=== PATIENT | male | born 1995 | race African-American/Black ===

== ENCOUNTER 2023-01-12 15:51 | Emergency (ER) | payer OTHER, SELFPAY ==
--- NOTE | ~2023-01-12 | XR_ITS ---
EXAMINATION: XR FOOT, LEFT CLINICAL INFORMATION: Foreign body heel plantar aspect COMPARISON: None available. TECHNIQUE: AP, lateral, and oblique views of the left foot. FINDINGS: No acute visible fracture or dislocation. Joint spaces and alignment are maintained. No radiopaque foreign body visualized XR/XR foot LT min 3V IMPRESSION: 1. No acute visible fracture or dislocation. 2. No radiopaque foreign body visualized.
[2023-01-12 16:33] VITALS: BP 121/69; PULSE 71; RESP 16; TEMP 36.7; O2SAT 94; BMI 32.7
--- NOTE | 2023-01-12 16:33 | ED_ITS ---
HPI - General Adult General Chief complaint: Wound/Laceration Stated complaint: Left foot Injury Two inch puncture wound Time Seen by Provider: 01/12/23 18:56 Source: patient Mode of arrival: ambulatory Limitations: no limitations History of Present Illness HPI narrative: Patient is a 27-year-old male who presents emergency department for evaluation of a puncture wound to the left heel. He reports that this happened prior to his arrival today. He was in his backyard he is unsure what he stepped on. He does not know the date of his last tetanus vaccine. He has not taken any OTC pain medication. He is having increasing pain to the left foot most notably with weight-bearing. Related Data Previous Rx's Medication Instructions Recorded cephalexin 500 mg capsule 500 mg PO QID 7 days #27 caps 01/12/23 Allergies Allergy/AdvReac Type Severity Reaction Status Date / Time brazil nuts Allergy Severe Anaphylaxis Uncoded 01/12/23 16:36 Review of Systems Review of Systems: Yes all other systems are reviewed and are negative [facility] Past Medical History Attestation statement: The following information was validated with the patient. Source: old records reviewed Social History Social History Advance Directives: No Advance Directives Information Provided: No Physical Exam ED Vital Signs: Vital Signs - 24 hr 01/12/23 16:33 Temperature 98.1 F Pulse Rate 71 Respiratory Rate 16 Blood Pressure 121/69 Pulse Oximetry 94 Oxygen Delivery Method Room Air BMI result Body Mass Index 32.7 Appearance: Alert.?Oriented to person, place and time. No acute distress.?Normal affect. Neck: Normal inspection.? Neck supple.?? CVS: Heart sounds normal. Normal heart rate and rhythm.? Pulses normal.?? Respiratory: No respiratory distress.? Lung sounds clear to auscultation bilaterally?? Abdomen: Soft and non-tender. ?? Skin: Skin warm and dry.? Normal skin color.? Puncture wound to left heel, bleeding controlled, no surrounding erythema or warmth?? Extremities: No lower extremity edema.? No calf ttp? Neuro: Moves all extremities spontaneously. Sensation intact bilaterally. Ambulates with antalgic gait. Course Course Course Narrative: This is a rapid medical exam: Additional HPI, ROS, PE not included below will be deferred to primary provider. Patient is a 27-year-old male presenting to the emergency department with complaint of puncture wound to plantar aspect of left heel. States he was in his backyard, is unsure what he stepped on. Does not believe he has any retained foreign body in his foot. Unsure last tetanus. Plan: Tdap, x-ray Medications Administered Discontinued Medications Generic Name Dose Route Start Last Admin Trade Name Ector PRN Reason Stop Dose Admin Cephalexin HCl 500 mg 01/12/23 19:28 01/12/23 19:36 Cephalexin 500 Mg Capsule PO 01/12/23 19:29 500 mg ONCE ONE Administration Diphtheria/Tetanus/Acell Pertussis 0.5 ml 01/12/23 16:36 01/12/23 17:52 Diphth,Pertus(Acell),Tet Adult 0.5 Ml Syringe IM 01/12/23 16:37 0.5 ml .ONCE ONE Administration Medical Decision Making Medical Decision Making MDM Narrative: Patient is a 27-year-old male who presents emergency department for evaluation of a puncture wound to the left heel. He is overall well-appearing, currently there is no evidence of infection to the wound and bleeding is controlled. The extremity is neurovascularly intact distally. He does have pain and difficulty with weight-bearing, provided with crutches to alleviate a weight-bearing burden advised that he may weight bear as tolerated. His tetanus vaccine was updated today. Educated on use of acetaminophen/ibuprofen, rest, elevation, and prophylactic antibiotic. Received his 1st dose of Keflex in the emergency department today. XR imaging reveals no evidence of fracture, osseous involvement, or retained radiopaque foreign body. Upon exam there is no palpable foreign body appreciated, wound was cleansed with peroxide and saline, clean dry dressing applied. Differential Diagnosis Differential Diagnoses: The differential diagnosis associated with the presentation includes (As noted above) Independent Interpretation I performed an independent interpretation of an: Plain X-Ray (I personally interpreted XR imaging of the left foot and agree with radiologist impression, no evidence of radiopaque foreign body or fracture) Radiology Impression Discussion of test interpretation with radiology: I have reviewed the radiologist's reading. Radiologist Impression: XR/XR foot LT min 3V IMPRESSION: 1.? No acute visible fracture or dislocation. 2.? No radiopaque foreign body visualized. Prescription Management I considered prescription management with: Pain Medication (Acetaminophen/ibuprofen) and Antibiotic Discharge Plan Discharge Clinical Impression: Puncture wound of left heel Patient Disposition: Home, Self-Care Instructions: Puncture Wound in the Foot (ED) Additional Instructions: As discussed, the x-ray does not show any evidence of a foreign body in your foot, nor involvement of your bone. This is very reassuring. Your tetanus vaccine was updated today. You can take ibuprofen 200 mg, 3 tablets (600mg) every 6-8 hours as needed for pain, in addition to Tylenol 500 mg, 2 tablets (1,000mg) every 4-6 hours as needed for pain, but not to exceed 3 doses daily (3,000mg).? A prescription for antibiotic was sent to your pharmacy, you received your 1st dose while in the emergency department, please pick this up 1st thing in the morning and began taking as prescribed. Be sure to rest, elevate your but when possible, cleanse the wound with will sent to soak twice daily. If you develop increasing pain, redness, swelling, pus-like discharge, fevers, chills then this should be re-evaluated. You may follow-up with your primary care provider. Return back to emergency department any new or worsening symptoms or concerns. Prescriptions: New cephalexin 500 mg capsule 500 mg PO QID 7 Days Qty: 27 0RF Referrals: Physician,None [Primary Care Provider] - Interventions: ED Discharge Assessment Last Done: 01/12/23 19:38 Discharge Date/Time: 01/12/23 19:49
[2023-01-12] MEDS: Diphth,Pertus(ACell),Tet Adult 0.5 ML SYRINGE IM (17:52)
--- OUTSIDE RECORDS SUMMARY | 2023-01-12 18:06 | XMS_ITS | Continuity of Care Document ---
Author Name Unknown Organization [facility] Address [address] [place] [id number] Care Team Providers Care Computer Hardware Technician Name Role Phone Not on Staff, PCP Primary Care Physician Unavail able Encounter [facility] Date(s): 05/30/19 - 05/31/[address] [address]- [facility] Encounter Diagnosis Influenza B(Final) - 05/31/19 Discharge Disposition: A-D/C Home Attending Physician: Jose Connelly MD Admitting Physician: Jose Connelly MD Referring Physician: Not on Staff, Referring MD Allergies, Adverse Reactions, Alerts Substance Reaction Severity Status NKA Active Immunizations Given and Recorded Vaccine Date Status Refusal Reason Varicella Virus Vaccine 09/15/07 Given Varicella Virus Vaccine 1 01/13/96 Given Tet/Diphth/Acel, Pertussis (oldterm) 09/15/07 Give n Meningococcal Conjugate Vaccine 09/15/07 Given Measles/Mumps/Rubella Virus Vaccine 2 01/08/99 Giv en Measles/Mumps/Rubella Virus Vaccine 3 11/09/95 Giv en Poliovirus Vaccine, Inactivated 4 01/08/99 Given Poliovirus Vaccine, Inactivated 5 01/13/96 Given Poliovirus Vaccine, Inactivated 6 02/07/95 Given Poliovirus Vaccine, Inactivated 7 94 Given diphtheria/tetanus/pertussis, acel(DTaP) 8 12/11/98 Given diphtheria/tetanus/pertussis, acel(DTaP) 9 01/13/96 Given diphtheria/tetanus/pertussis, acel(DTaP) 10 04/09/95 Given diphtheria/tetanus/pertussis, acel(DTaP) 11 02/07/95 Given diphtheria/tetanus/pertussis, acel(DTaP) 12 94 Given Haemophilus B Conj Vaccine (oldterm) 13 04/25/98 G iven Haemophilus B Conj Vaccine (oldterm) 14 04/09/95 G iven Haemophilus B Conj Vaccine (oldterm) 15 02/07/95 G iven Haemophilus B Conj Vaccine (oldterm) 16 94 G iven Hepatitis B Vaccine (old term) 17 08/08/95 Given Hepatitis B Vaccine (old term) 18 94 Given Hepatitis B Vaccine (old term) 19 94 Given 1Admin Note: VILMA 2Admin Note: MMR 3Admin Note: MMR 4Admin Note: IPV/OPV 5Admin Note: IPV/OPV 6Admin Note: IPV/OPV 7Admin Note: IPV/OPV 8Admin Note: DTAP 9Admin Note: DTAP 10Admin Note: DTAP 11Admin Note: DTAP 12Admin Note: DTAP 13Admin Note: HIB 14Admin Note: HIB 15Admin Note: HIB 16Admin Note: HIB 17Admin Note: HEP B 18Admin Note: HEP B 19Admin Note: HEP B Medications Zofran ODT 4 mg oral tablet, disintegrating 1 tablet = 4 mg, By Mouth, Every 8 hours, PRN as needed for nausea/vomiting, allow tablet to dissolve on tongue, # 10 tablet, 0 Refills, Maintenance, 05/31/19 3:10:00 EST, DIS Tablet Start Date: 05/31/19 Status: Ordered Problem List Condition Effective Dates Status Health Status Inform ant Attention deficit disorder(Confirmed) Active Vital Signs Most recent to oldest [Reference Range]: 1 2 3 Weight 92.7 kg (05/31/19 3:26 AM) 92.7 kg (05/31/19 1:08 AM) 92.7 kg (05/30/19 10:40 PM) Oxygen Saturation [94-100 %] 99 % (05/31/19 3:26 AM) 99 % (05/31/19 1:08 AM) 97 % (05/31/19 12:57 AM) Pulse Rate [55-90 bpm] 87 bpm (05/31/19 3:26 AM) 86 bpm (05/31/19 1:08 AM) 86 bpm (05/31/19 12:57 AM) Blood Pressure [90-138/55-84 mm Hg] 129/100mm Hg (05/31/19 3:26 AM) 132/87mm Hg (05/31/19 1:08 AM) 147/81mm Hg *H* (05/31/19 12:57 AM) Respiratory Rate [16-30 br/min] 18 br/min (05/31/19 3:26 AM) 18 br/min (05/31/19 1:08 AM) 18 br/min (05/31/19 12:57 AM) Temperature [96.8-100.4 DegF] 98.2 DegF (05/31/19 1:08 AM) 99.4 DegF (05/31/19 12:57 AM) 99.1 DegF (05/30/19 10:40 PM) Mode of Delivery (Oxygen) Room air (05/31/19 3:26 AM) Room air (05/31/19 1:08 AM) Room air (05/31/19 12:57 AM) Blood pressure sites Arm, right (05/31/19 3:26 AM) Arm, right (05/31/19 1:08 AM) Arm, right (05/31/19 12:57 AM) Temperature Route Oral (05/31/19 1:08 AM) Oral (05/31/19 12:57 AM) Oral (05/30/19 10:40 PM) Dry Weight 92.7 kg (05/31/19 3:26 AM) 92.7 kg (05/31/19 1:08 AM) 92.7 kg (05/30/19 10:40 PM) Weight Obtained Via Standing scale (05/30/19 10:40 PM) Dry Weight Obtained Via Standing scale (05/30/19 10:40 PM) Social History Social History Type Response Sex Male
[2023-01-12] MEDS: cephALEXin 500 MG CAPSULE PO (19:36)
--- NOTE | 2023-01-12 19:38 | PC.NURSE ---
pt medicated per JUL/.
== END 2023-01-12 19:49 | disposition home or self-care (01) ==
PROVIDERS: Emergency Provider Emergency Medicine
DX: S91.332A Puncture wound without foreign body, left foot, initial encounter (principal); S90.812A Abrasion, left foot, initial encounter; X58.XXXA Exposure to other specified factors, initial encounter; Y93.9 Activity, unspecified; Y92.9 Unspecified place or not applicable; Y99.9 Unspecified external cause status; Z23 Encounter for immunization
CPT/HCPCS: 73630; 90471; 90715; 99282; 99284